=== PATIENT | male | born 1965 | race Caucasian/White ===

== ENCOUNTER → 2017-03-16 | Outpatient (CLI) | payer BC | END | disposition home or self-care (01) | LOC: GMAB 14:50 | PROVIDERS: ATTEND Family Medicine | DX: G44.209 Tension-type headache, unspecified, not intractable (principal) ==

== ENCOUNTER → 2017-03-24 | Outpatient (CLI) | payer BC ==
--- NOTE | 2017-03-24 16:37 | MRI ---
EXAM DATE: 03/24/2017 10:00 AM CDT. PROCEDURE: MR BRAIN WITHOUT IV CONTRAST. INDICATION: HEADACHE. COMPARISON: 10/09/2015. TECHNIQUE: Multiplanar multisequence images of the brain were acquired without the administration of intravenous contrast. FINDINGS: No acute infarct or intracranial hemorrhage. No mass, mass effect, or midline shift. No significant parenchymal signal abnormalities. Normal midline structures including the pituitary, corpus callosum, and cerebellar tonsils. The ventricles and sulci are normal in size and configuration. Internal carotid and vertebrobasilar flow voids are identified. Unremarkable orbits, paranasal sinuses, mastoid air cells, and calvarium. IMPRESSION: Unremarkable MRI of the brain without contrast. Electronically signed by: Patricio Bernstein MD 03/24/2017 4:36 PM CDT
== END | disposition home or self-care (01) ==
LOC: MRI 09:59
PROVIDERS: ATTEND Family Medicine
DX: R51 Headache (principal); H57.12 Ocular pain, left eye; H53.10 Unspecified subjective visual disturbances; A23 Brucellosis

== ENCOUNTER → 2017-10-06 | Outpatient (CLI) | payer BC | LOC: GMAB 13:28 | PROVIDERS: ATTEND Family Medicine | DX: Z00.01 Encounter for general adult medical examination with abnormal findings (principal) ==

== ENCOUNTER → 2018-06-24 | Outpatient (CLI) | payer BC ==
--- NOTE | 2018-06-24 08:12 | MRI ---
Study: MRI of the Brain. Indication: R51 Technique: Multiplanar, multi sequence MRI of the brain obtained without intravenous contrast. Comparison: None. Findings: No MRI evidence of acute ischemia, acute hemorrhage, mass, mass effect, midline shift, or extra-axial fluid collection. Ventricles are normal in configuration without hydrocephalus. Brain parenchyma demonstrates a normal appearance for patient's age. Midline structures are intact. Paranasal sinuses are adequately aerated. Mastoid air cells are adequately aerated. Osseous structures and soft tissues demonstrate normal signal characteristics. Impression: No acute intracranial abnormality by MRI. Electronically signed by: Abdiel Goff MD 06/24/2018 8:11 AM [facility]
== END ==
LOC: MRI 07:14
PROVIDERS: ATTEND Family Medicine
DX: R51 Headache (principal); R29.898 Other symptoms and signs involving the musculoskeletal system; H02.409 Unspecified ptosis of unspecified eyelid

== ENCOUNTER → 2018-10-11 | Outpatient (CLI) | payer BC | LOC: GMAE 10:58 | PROVIDERS: ATTEND Family Medicine | DX: Z00.01 Encounter for general adult medical examination with abnormal findings (principal) ==

== ENCOUNTER → 2020-07-03 | Outpatient (CLI) | payer BC | LOC: GMAE 10:55 | PROVIDERS: ATTEND Family Medicine | DX: E03.9 Hypothyroidism, unspecified (principal); E11.9 Type 2 diabetes mellitus without complications ==